=== PATIENT | male | born 1990 | race Caucasian/White ===

== ENCOUNTER 2018-06-12 20:57 | Emergency (ER) | payer SELFPAY ==
[~2018-06-12] VITALS: Ht 180.3 cm; Wt 77.6 kg
[~2018-06-12 20:57] MED LIST: POLY10SO
[2018-06-12 21:00] VITALS: BP 109/69
[2018-06-12 21:29] LABS: HEMATOCRIT 44.2 % (36-52); HEMOGLOBIN 14.9 g/dL (12.0-18.0); MEAN CORPUSCULAR HEMOGLOBIN 29 pg (27-31); MEAN CORPUSCULAR HGB CONC 34 g/dL (33-37); MEAN CORPUSCULAR VOLUME 85.8 fL (80-94); PLATELET COUNT (AUTO) 405 K/uL (140-450); RED BLOOD CELL COUNT(AUTO) 5.15 MIL/uL (4.20-6.10)
[2018-06-12 21:30] LABS: APPEARANCE,URINE SL CLOUDY (CLEAR); BILIRUBIN,URINE 1+ (NEGATIVE); BLOOD, URINE 2+ (NEGATIVE); COLOR,URINE YELLOW (YELLOW); LEUKOCYTE ESTERASE ,URINE 1+ (NEGATIVE); NITRITE, URINE NEGATIVE (NEGATIVE); UGLUCOSE NEGATIVE (NEGATIVE)
[2018-06-12 21:41] LABS: ANION GAP 12.2 (8-16); CARBON DIOXIDE 29.4 mmol/L (21-32); CREATININE 0.8 mg/dL (0.7-1.3); POTASSIUM 3.6 mmol/L (3.5-5.1)
[2018-06-12 21:44] LABS: WHITE BLOOD COUNT (AUTO) 18.9 K/uL (4.8-10.8)
[2018-06-12 21:45] LABS: EOSINOPHILS % (MANUAL) 2 % (0-4); LYMPHOCYTES % (MANUAL) 9 % (20-46); MONOCYTES % (MANUAL) 9 % (5-12)
[2018-06-12 21:47] LABS: ALBUMIN 4.3 g/dL (3.4-5.0); TOTAL BILIRUBIN 0.6 mg/dL (0.0-1.0)
[2018-06-12 22:02] LABS: RBC,URINE TOO NUMEROUS TO COUN /HPF (0-5); WBC,URINE TOO MANY TO COUNT /HPF (0-5)
--- NOTE | 2018-06-12 22:58 | NUR ---
PATIENT LEFT WITHOUT BEING SEEN BY DR. DENNIS. NO FURTHER CARE PROVIDED FOR PATIENT. CALLED 3 TIMES N/A IN ER LOBBY 22:59-2ND CALL N/A 23:05-3RD CALL N/A
== END 2018-06-12 22:58 | disposition left against medical advice (07) ==
LOC: MED 20:57
DX: R10.9 Unspecified abdominal pain (principal); Z53.21 Procedure and treatment not carried out due to patient leaving prior to being seen by health care provider
CPT/HCPCS: 36415; 80053; 81001; 85025; 87086; 99284

== ENCOUNTER 2018-06-13 09:18 | Emergency (ER) | payer OTHER ==
[~2018-06-13] VITALS: Ht 180.3 cm; Wt 63.5 kg
[2018-06-13 09:21] VITALS: BP 142/84
--- NOTE | 2018-06-13 09:35 | NUR ---
Note undone in EDM - 06/13/18 at 0954 by MIRIAM PATIENT PRESENTS TO ED WITH LEFT PELVIC AND TESTICULAR PAIN. PT STATES PAIN STARTED LAST NIGHT. PT DENIES CWELLING OR PENIAL DISCHARGE. DENIES N/V/D; SKIN IS PINK/WARM/DRY; AAOX4 WITH EVEN AND STEADY GAIT; LUNGS CLEAR BL; HR EVEN AND REGULAR; PT DENIES ANY FEVER, CP, SOB, OR COUGH AT THIS TIME; PATIENT STATES PAIN OF 8/10 AT THIS TIME; VSS; PATIENT POSITIONED FOR COMFORT; HOB ELEVATED; BEDRAILS UP X2; BED DOWN. ER MD MADE AWARE OF PT STATUS.
[2018-06-13] MEDS ORDERED: NACL 0.9% 1,000 ML IV SCH (09:46)
[2018-06-13] MEDS ORDERED: AZITHROMYCIN 250 MG TAB PO ONE (09:50)
[2018-06-13] MEDS ORDERED: KETOROLAC 30 MG/ML VIAL IVP ONE (09:50)
[2018-06-13] MEDS ORDERED: cefTRIAXone 250 MG in LIDOCAINE MPF 1% - 5 mL VIAL 0.9 ML IM ONE (09:50)
--- NOTE | 2018-06-13 09:53 | NUR ---
DR RANGEL AT BEDSIDE
--- NOTE | 2018-06-13 10:17 | NUR ---
PT TAKEN TO CAT SCAN IN WHEELCHAIR BY RADIOLGY.
[2018-06-13 10:20] LABS: BASOPHILS % (AUTO) 0.3 % (0.0-2.0); EOSINOPHILS # (AUTO) 0.3 K/uL (0-0.4); EOSINOPHILS % (AUTO) 2.2 % (0.0-4.0); HEMATOCRIT 42.6 % (36-52); HEMOGLOBIN 14.4 g/dL (12.0-18.0); LYMPHOCYTES % (AUTO) 13.2 % (20.5-51.1); MEAN CORPUSCULAR HEMOGLOBIN 29 pg (27-31); MEAN CORPUSCULAR HGB CONC 34 g/dL (33-37); MONOCYTES # (AUTO) 1.7 K/uL (0.8-1.0); MONOCYTES % (AUTO) 11.5 % (1.7-9.3); NEUTROPHILS % (AUTO) 72.8 % (42.2-75.2); PLATELET COUNT (AUTO) 373 K/uL (140-450); RED BLOOD CELL COUNT(AUTO) 4.96 MIL/uL (4.20-6.10); RED CELL DISTRIBUTION WIDTH 13.2 % (11.6-13.7); WHITE BLOOD COUNT (AUTO) 15.1 K/uL (4.8-10.8)
[2018-06-13 10:21] LABS: APPEARANCE,URINE CLOUDY (CLEAR); BILIRUBIN,URINE 1+ (NEGATIVE); BLOOD, URINE 3+ (NEGATIVE); COLOR,URINE YELLOW (YELLOW); LEUKOCYTE ESTERASE ,URINE 2+ (NEGATIVE); NITRITE, URINE NEGATIVE (NEGATIVE)
[2018-06-13 10:31] LABS: ANION GAP 12.4 (8-16); CARBON DIOXIDE 25.1 mmol/L (21-32); CREATININE 0.8 mg/dL (0.7-1.3); POTASSIUM 3.5 mmol/L (3.5-5.1)
[2018-06-13 10:39] LABS: ALBUMIN 3.9 g/dL (3.4-5.0); TOTAL BILIRUBIN 0.8 mg/dL (0.0-1.0)
[2018-06-13 10:44] LABS: RBC,URINE 3-10 (FEW) /HPF (0-5); UGLUCOSE NEGATIVE (NEGATIVE); WBC,URINE 20-60 /HPF (0-5)
[2018-06-13 11:27] VITALS: BP 127/85
--- NOTE | 2018-06-13 11:27 | NUR ---
Patient discharged ACCOMPANIED BY GIRLFRIEND with v/s stable. Written and verbal after care instructions given and explained. Patient alert, oriented and verbalized understanding of instructions. Ambulatory with steady gait. All questions addressed prior to discharge. ID band removed. Patient advised to follow up with PMD. Rx of MOTRIN AND CIPRO given. Patient educated on indication of medication including possible reaction and side effects. Opportunity to ask questions provided and answered.
[2018-06-17 06:40] LABS: CHLAMYDIA TRACHOMATIS AMP DNA Negative (Negative)
== END 2018-06-13 11:27 | disposition home or self-care (01) ==
LOC: MED 09:18
DX: N39.0 Urinary tract infection, site not specified (principal); F12.10 Cannabis abuse, uncomplicated; Z79.899 Other long term (current) drug therapy
CPT/HCPCS: 36415; 74176; 80053; 81001; 83690; 85025; 96372; 96374; 99285; J0696; J1885; J2001; J7030; 87491

== ENCOUNTER 2023-01-31 11:09 | Emergency (ER) | payer OTHER ==
[~2023-01-31] VITALS: Ht 182.9 cm; Wt 81.6 kg
[2023-01-31 11:10] VITALS: BP 137/100
--- NOTE | 2023-01-31 11:29 | NUR ---
Patient BIBA to bed 8.
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
--- NOTE | 2023-01-31 11:46 | NUR ---
Dr. López evaluating patient at bedside.
--- NOTE | 2023-01-31 11:55 | NUR ---
X-Ray at bedside.
--- NOTE | 2023-01-31 12:11 | NUR ---
Patient was taken to CT via [facility]ipp[facility].
--- NOTE | 2023-01-31 12:25 | NUR ---
Patient returned from CT.
--- NOTE | 2023-01-31 13:18 | NUR ---
Patient being re-evaluated by Dr. López.
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
[2023-01-31 14:18] VITALS: BP 126/82
--- NOTE | 2023-01-31 14:18 | NUR ---
Patient discharged with v/s stable. Written and verbal after care instructions given. Patient verbalized understanding. Ambulatory with steady gait. All questions addressed prior to discharge. Advised to follow up with PMD. Addendum: 01/31/23 at 1438 by [email or web address] IV discontinued. No active bleeding
--- NOTE | 2023-01-31 14:18 | NUR ---
The patient's care was reviewed and supervised by Lizzy Powell, RN, RN.
== END 2023-01-31 14:18 | disposition home or self-care (01) ==
LOC: MED 11:09
DX: S13.4XXA Sprain of ligaments of cervical spine, initial encounter (principal); S90.111A Contusion of right great toe without damage to nail, initial encounter; S00.83XA Contusion of other part of head, initial encounter; Z79.2 Long term (current) use of antibiotics; V89.2XXA Person injured in unspecified motor-vehicle accident, traffic, initial encounter; Y93.89 Activity, other specified; Y92.410 Unspecified street and highway as the place of occurrence of the external cause; Y99.8 Other external cause status
CPT/HCPCS: 70450; 70486; 72125; 73630; 99284; Q0092